=== PATIENT | female | born 1940 | race Caucasian/White ===

== ENCOUNTER 2017-09-26 17:28 | Inpatient (IN) | payer MEDICARE ==
[~2017-09-26] VITALS: Ht 160 cm; Wt 79.0 kg
[~2017-09-26 17:28] MED LIST: BAYE325T3 PO; DIPH2%T PO
[2017-09-26 17:33] VITALS: BP 210/96; PULSE 66; RESP 20; TEMP 97.8; O2SAT 95
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
[2017-09-26] MEDS ORDERED: SODIUM CHLORIDE 0.9% FLUSH 10 ML FLUSH IVF PRN ×2 (17:45→18:15)
[2017-09-26] MEDS ORDERED: ACETAMINOPHEN 500 MG CPLT PO ONE (17:45)
[2017-09-26] MEDS ORDERED: ONDANSETRON HCL 4 MG/2 ML VIAL IVP ONE (18:15)
[2017-09-26] MEDS ORDERED: MORPHINE SULFATE 4 MG/ML INJ IV PUSH ONE ×3 (18:15→19:30)
[2017-09-26 18:19] VITALS: O2SAT 95
[2017-09-26] MEDS ORDERED: MORPHINE SULFATE 2 MG/ML INJ IV PUSH ONE (18:30)
--- NOTE | 2017-09-26 18:39 | RADRPT ---
EXAM DATE/TIME: 09/26/2017 17:50 [facility] COMPARISON: No previous studies available for comparison. INDICATIONS : Left hip pain after fall. MEDICAL HISTORY : None. SURGICAL HISTORY : Hysterectomy. ENCOUNTER: Initial ACUITY: 1 day PAIN SCORE: 10/10 LOCATION: Left hip. FINDINGS: AP view of the pelvis with multiple views of the left hip demonstrate a subcapital left femoral neck fracture with minimal displacement. The remaining pelvic bones and soft tissues demonstrate no acute finding. CONCLUSION: There is an minimally displaced subcapital left femoral neck fracture. Gerard Garcia MD on September 26, 2017 at 18:36 Board Certified Radiologist. This report was verified electronically.
--- NOTE | 2017-09-26 18:40 | RADRPT ---
EXAM DATE/TIME: 09/26/2017 18:15 [facility] COMPARISON: No previous studies available for comparison. INDICATIONS : Trauma. Patient fell today. MEDICAL HISTORY : None. SURGICAL HISTORY : Hysterectomy. ENCOUNTER: Initial ACUITY: 1 day PAIN SCORE: 0/10 LOCATION: Bilateral chest FINDINGS: Portable AP view of the chest demonstrates a normal-sized cardiac silhouette. No effusion, consolidat ion, or pneumothorax is visualized. The bones and soft tissues demonstrate no acute abnormality. Clip s overlie the left upper quadrant. There is likely a small hiatal hernia. CONCLUSION: 1. No acute cardiopulmonary abnormalities identified. 2. Suspected small hiatal hernia. Gerard Garcia MD on September 26, 2017 at 18:37 Board Certified Radiologist. This report was verified electronically.
[2017-09-26] MEDS ORDERED: CHOL1TAB42 PO (18:42)
[2017-09-26] MEDS ORDERED: OMEP20TA93 PO (18:42)
[2017-09-26] MEDS ORDERED: LEVO125T4 PO (18:42)
[2017-09-26] MEDS ORDERED: ZANT150T2 PO (18:42)
[2017-09-26] MEDS ORDERED: METO100T PO (18:42)
[2017-09-26] MEDS ORDERED: VITA10002 PO (18:42)
[2017-09-26] MEDS ORDERED: ALTA10CA12 PO (18:42)
[2017-09-26] MEDS ORDERED: ASPI81TA16 PO (18:42)
[2017-09-26] MEDS ORDERED: CALC12502 PO (18:42)
[2017-09-26 18:43] LABS: AUTOMATED NEUTROPHIL # 2.9 TH/MM3 (1.8-7.7); BASOPHIL % 0.7 % (0.0-2.0); EOSINOPHIL # 0.2 TH/MM3 (0-0.4); EOSINOPHIL % 2.8 % (0.0-4.0); HEMATOCRIT 41.6 % (35.0-46.0); HEMO FLAGS DIFF FINAL; LYMPH % 40.4 % (9.0-44.0); LYMPHOCYTE # 2.6 TH/MM3 (1.0-4.8); MEAN CELL VOLUME 88.9 FL (80.0-100.0); MEAN CORPUSCULAR HEMOGLOBIN 30.9 PG (27.0-34.0); MEAN CORPUSCULAR HGB CONC 34.8 % (32.0-36.0); MONO % 10.7 % (0.0-8.0); NEUT % 45.4 % (16.0-70.0); PLATELET COUNT 184 TH/MM3 (150-450); RED BLOOD COUNT 4.68 MIL/MM3 (4.00-5.30); RED CELL DISTRIBUTION WIDTH 12.6 % (11.6-17.2); WHITE BLOOD COUNT 6.3 TH/MM3 (4.0-11.0)
[2017-09-26 18:46] VITALS: BP 186/79; PULSE 73; RESP 20; O2SAT 94
[2017-09-26 19:00] LABS: APTT (PATIENT) 25.9 SEC (24.3-30.1); INTERNATIONAL NORMALIZED RATIO 0.9 RATIO; PROTHROMBIN TIME - PATIENT 10.2 SEC (9.8-11.6)
[2017-09-26 19:01] LABS: ALT (GPT) 76 U/L (10-53)
[2017-09-26 19:03] LABS: ALKALINE PHOSPHATASE 115 U/L (45-117); TOTAL BILIRUBIN ADULT 0.5 MG/DL (0.2-1.0)
[2017-09-26 19:06] LABS: BLOOD, URINE NEG (NEG); GLUCOSE,URINE NEG (NEG); KETONE, URINE NEG (NEG); NITRITE,URINE NEG (NEG); URINE COLOR LIGHT-YELLOW (YELLW/STRAW)
[2017-09-26 19:09] LABS: COMMENT (UR) CATH-CULT NOT IND; CULTURE IF INDICATED CATH CULTURE NOT IND
[2017-09-26 19:10] LABS: ANION GAP 11 MEQ/L (5-15); AST (GOT) 63 U/L (15-37); BICARBONATE 22.3 MEQ/L (21.0-32.0); BLOOD UREA NITROGEN 10 MG/DL (7-18); CHLORIDE 107 MEQ/L (98-107); GLOMERULAR FILTRATION RATE 85 ML/MIN (>89); POTASSIUM 3.6 MEQ/L (3.5-5.1); SODIUM (NA) 140 MEQ/L (136-145)
[2017-09-26 19:17] VITALS: BP 191/82; PULSE 65; RESP 16; O2SAT 90
[2017-09-26] MEDS ORDERED: ACETAMINOPHEN 325 MG TAB PO PRN (19:30)
[2017-09-26] MEDS ORDERED: MORPHINE SULFATE 4 MG/ML INJ IV PUSH PRN ×2 (19:30)
[2017-09-26] MEDS ORDERED: SODIUM CHLORIDE 0.9% FLUSH 10 ML FLUSH IV FLUSH PRN (19:30)
[2017-09-26] MEDS ORDERED: BISACODYL 10 MG SUPP RECTAL PRN (19:30)
[2017-09-26] MEDS ORDERED: SENNOSIDES 8.6 MG TAB PO PRN (19:30)
[2017-09-26] MEDS ORDERED: MAGNESIUM HYDROXIDE SUSP 30 ML CUP PO PRN (19:30)
--- NOTE | 2017-09-26 19:31 | HHI.HP ---
HPI Service [facility] Primary Care Physician Non-Staff Admission Diagnosis left subcapital femoral neck fracture Diagnoses: (1) Fall Diagnosis: Principal (2) Hip fracture, left Diagnosis: Principal (3) HTN (hypertension) Diagnosis: Principal (4) Dehydration Diagnosis: Principal (5) Elevated LFTs Diagnosis: Principal Travel History International Travel<30 Days: No Contact w/Intl Traveler <30 Da: No Traveled to Known Affected Are: No History of Present Illness This is a 76-year-old female with a PMH of HTN who is brought to the ER by EMS after a fall with complaints of left hip pain. Patient states she's visiting from [place], was walking on the beach when she suddenly tripped over her sandals and fell onto left side, immediate complaints of left hip pain. No head trauma or LOC. On arrival, BP 234/101, HR 73, O2 sat 94% on RA, Afebrile. S/p Morphine in ER, repeat BP 162/73, HR 65. CBC unremarkable. Chemistry unremarkable was sent for GFR 85. AST/ALT mildly elevated. INR 0.9. UA negative. CXR with no acute findings. Hip X-ray minimally displaced subcapital left femoral neck fracture. Ankle/Foot/Knee/Tib-fib X-ray negative for acute fracture. Dr. Reyez consulted by ER physician, plan is for surgical intervention in am. Review of Systems Except as stated in HPI: all other systems reviewed are Neg ROS: 14 point review of systems otherwise negative. Past Family Social History Past Medical History PMH: HTN Past Surgical History PAST SURGICAL HISTORY: Hysterectomy Allergies: Coded Allergies: pneumococcal vaccine (Verified Allergy, Severe, 09/26/17) pt states cellulitis codeine (Unverified Allergy, Unknown, 09/26/17) Family History PAST FAMILY HISTORY: Reviewed. No h/o DM or CAD Social History PAST SOCIAL HISTORY: Negative for alcohol, tobacco or drugs. Physical Exam Vital Signs Vital Signs Date Time Temp Pulse Resp B/P (MAP) Pulse Ox O2 Delivery O2 Flow Rate FiO2 09/26/17 19:17 65 16 191/82 (118) 90 Room Air 09/26/17 18:46 73 20 186/79 (114) 94 Room Air 09/26/17 18:30 66 95 Room Air 09/26/17 18:19 95 Room Air 09/26/17 17:33 97.8 66 20 210/96 (134) 95 Physical Exam PE: GENERAL: Pleasant elderly white female in no acute distress. HEENT: PERRLA, EOMI. No scleral icterus or conjunctival pallor. No lid lag or facial droop. CARDIOVASCULAR: Regular rate and rhythm. No obvious murmurs to auscultation. No chest tenderness to palpation. RESPIRATORY: No obvious rhonchi or wheezing. Clear to auscultation. Breath sounds equal bilaterally. GASTROINTESTINAL: Abdomen soft, non-tender, nondistended. BS normal. MUSCULOSKELETAL: Extremities without clubbing, cyanosis, or edema. No obvious deformities. Decreased ROM of LLE due to injury. NEUROLOGICAL: Awake, alert and oriented x4. No focal neurologic deficits. Moving both upper and lower extremities spontaneously. Laboratory Laboratory Tests Test 09/26/17 18:15 09/26/17 18:45 White Blood Count 6.3 Red Blood Count 4.68 Hemoglobin 14.5 Hematocrit 41.6 Mean Corpuscular Volume 88.9 Mean Corpuscular Hemoglobin 30.9 Mean Corpuscular Hemoglobin Concent 34.8 Red Cell Distribution Width 12.6 Platelet Count 184 Mean Platelet Volume 7.7 Neutrophils (%) (Auto) 45.4 Lymphocytes (%) (Auto) 40.4 Monocytes (%) (Auto) 10.7 Eosinophils (%) (Auto) 2.8 Basophils (%) (Auto) 0.7 Neutrophils # (Auto) 2.9 Lymphocytes # (Auto) 2.6 Monocytes # (Auto) 0.7 Eosinophils # (Auto) 0.2 Basophils # (Auto) 0.0 CBC Comment DIFF FINAL Differential Comment Prothrombin Time 10.2 Prothromb Time International Ratio 0.9 Activated Partial Thromboplast Time 25.9 Blood Urea Nitrogen 10 Creatinine 0.67 Random Glucose 122 Total Protein 7.5 Albumin 3.5 Calcium Level 8.7 Alkaline Phosphatase 115 Aspartate Amino Transf (AST/SGOT) 63 Alanine Aminotransferase (ALT/SGPT) 76 Total Bilirubin 0.5 Sodium Level 140 Potassium Level 3.6 Chloride Level 107 Carbon Dioxide Level 22.3 Anion Gap 11 Estimat Glomerular Filtration Rate 85 Urine Color LIGHT-YELLOW Urine Turbidity CLEAR Urine pH 6.0 Urine Specific [place] 1.007 Urine Protein NEG Urine Glucose (UA) NEG Urine Ketones NEG Urine Occult Blood NEG Urine Nitrite NEG Urine Bilirubin NEG Urine Urobilinogen LESS THAN 2.0 Urine Leukocyte Esterase NEG Urine RBC LESS THAN 1 Urine WBC LESS THAN 1 Microscopic Urinalysis Comment CATH-CULT NOT IND Result Diagram: 09/26/17181409/26/171814 Caprini VTE Risk Assessment Caprini VTE Risk Assessment: Mod/High Risk (score >= 2) Caprini Risk Assessment Model Point Value = 1 Point Value = 2 Point Value = 3 Point Value = 5 Age 41-60 Minor surgery BMI > 25 kg/m2 Swollen legs Varicose veins or History of unexplained or recurrent spontaneous Oral contraceptives or hormone replacement Sepsis (< 1 month) Serious lung disease, including pneumonia (< 1 month) Abnormal pulmonary function Acute myocardial infarction Congestive heart failure (< 1 month) History of inflammatory bowel disease Medical patient at bed rest Age 61-74 Arthroscopic surgery Major open surgery (> 45 min) Laparoscopic surgery (> 45 min) Malignancy Confined to bed (> 72 hours) Immobilizing plaster cast Central venous access Age >= 75 History of VTE Family history of VTE Factor V Leiden Prothrombin [id number] Lupus anticoagulant Anticardiolipin antibodies Elevated serum homocysteine Heparin-induced thrombocytopenia Other congenital or acquired thrombophilia Stroke (< 1 month) Elective arthroplasty Hip, pelvis, or leg fracture Acute spinal cord injury (< 1 month) Prophylaxis Regimen Total Risk Factor Score Risk Level Prophylaxis Regimen 0-1 Low Early ambulation 2 Moderate Order ONE of the following: *Sequential Compression Device (SCD) *Heparin 5000 units SQ BID 3-4 Higher Order ONE of the following medications: *Heparin 5000 units SQ TID *Enoxaparin/Lovenox 40 mg SQ daily (WT < 150 kg, CrCl > 30 mL/min) *Enoxaparin/Lovenox 30 mg SQ daily (WT < 150 kg, CrCl > 10-29 mL/min) *Enoxaparin/Lovenox 30 mg SQ BID (WT < 150 kg, CrCl > 30 mL/min) AND/OR *Sequential Compression Device (SCD) 5 or more Highest Order ONE of the following medications: *Heparin 5000 units SQ TID (Preferred with Epidurals) *Enoxaparin/Lovenox 40 mg SQ daily (WT < 150 kg, CrCl > 30 mL/min) *Enoxaparin/Lovenox 30 mg SQ daily (WT < 150 kg, CrCl > 10-29 mL/min) *Enoxaparin/Lovenox 30 mg SQ BID (WT < 150 kg, CrCl > 30 mL/min) AND *Sequential Compression Device (SCD) Assessment and Plan Problem List: (1) Fall ICD Code: W19.XXXA - Unspecified fall, initial encounter (2) Hip fracture, left ICD Code: S72.002A - Fracture of unspecified part of neck of left femur, initial encounter for closed fracture (3) Dehydration ICD Code: E86.0 - Dehydration (4) HTN (hypertension) ICD Code: I10 - Essential (primary) hypertension (5) Elevated LFTs ICD Code: R79.89 - Other specified abnormal findings of blood chemistry Assessment and Plan A/P: 1. Fall: s/p mechanical trip and fall while at beach, no head trauma/LOC reported. Foot/Ankle/Knee/Tib-fib X-ray all negative for acute fractures, images reviewed by me. 2. Left Hip Fx: Hip X-ray w/ minimally displaced subcapital left femoral neck fracture, images reviewed by me. Dr. Reyez consulted by ER physician, plan is for surgical intervention in am. NPO, IVF, analgesics/antiemetics. Pre-op labs essentially unremarkable. Hold ASA. 3. Dehydration: GFR 85. U/a negative, IVF for hydration, repeat labs in am. 4. HTN: BP 234/101, HR 79 on arrival, likely compounded by significant pain, s /p Morphine, repeat BP 162/73, HR 65. Will monitor. Restart home Metoprolol, Ramipril. 5. Elevated LFTs: Mild. No previous labs for comparison. Recheck labs in am for trend. 6. DVT Prophylaxis: Anticoagulation post op per Ortho 7. Social work for d/c planning as needed. 8. Case discussed w/ ER physician at length. Physician Certification 2 Midnight Certification Type: Admission for Inpatient Services Order for Inpatient Services The services are ordered in accordance with Medicare regulations or non- Medicare payer requirements, as applicable. In the case of services not specified as inpatient-only, they are appropriately provided as inpatient services in accordance with the 2-midnight benchmark. Estimated LOS (days): 2 days is the estimated time the patient will need to remain in the hospital, assuming treatment plan goals are met and no additional complications. Post-Hospital Plan: Not yet determined Mary Moore MD Sep 26, 2017 19:31
[2017-09-26 20:22] VITALS: BP 162/73
[2017-09-26] MEDS: SODIUM CHLOR 0.9% 1000 ML INJ 1,000 ML IV SCH (20:52)
[2017-09-26] MEDS: ONDANSETRON HCL 4 MG/2 ML VIAL IVP PRN (20:52)
[2017-09-26] MEDS: SODIUM CHLORIDE 0.9% FLUSH 10 ML FLUSH IV FLUSH SCH (21:00)
[2017-09-26] MEDS ORDERED: RESP: ALBUTEROL 2.5 MG/IPRATROPIUM 0.5 MG NEB (PRN) NEB (21:00)
[2017-09-26] MEDS: DOCUSATE SODIUM 50 MG/SENNA 8.6 MG TAB PO SCH (21:00)
[2017-09-26 21:30] VITALS: BP 175/89; PULSE 79; RESP 17; TEMP 97.5; O2SAT 96
[2017-09-27] VITALS (7 sets, daily range): BP systolic 106–168; BP diastolic 62–98; PULSE 58–92; RESP 17–20; TEMP 96.1–98.1; O2SAT 93–95
[2017-09-27] MEDS ORDERED: LACTATED RINGER'S 1000 ML IV PRN (01:30)
[2017-09-27] MEDS ORDERED: POVIDONE IODINE 5% (ANTISEPSIS KIT) 4 APPLICATIONS EACH NARE PRN (01:30)
[2017-09-27] MEDS ORDERED: SODIUM CHLORID 0.9% 500 ML IV PRN (01:30)
[2017-09-27] MEDS ORDERED: INSULIN HUMAN REGULAR 1,000 UNITS/10 ML VIAL SQ PRN (01:30)
[2017-09-27] MEDS ORDERED: METOPROLOL TARTRATE 25 MG TAB PO PRN (01:30)
[2017-09-27] MEDS ORDERED: CHLORHEXIDINE GLUCONATE 2 % 1 PACK (2 CLOTHS) TOPICAL PRN (01:30)
[2017-09-27] MEDS: ONDANSETRON HCL 4 MG/2 ML VIAL IVP PRN ×2 (03:43→20:03)
[2017-09-27] MEDS: SODIUM CHLOR 0.9% 1000 ML INJ 1,000 ML IV SCH (06:20)
[2017-09-27] MEDS ORDERED: METOPROLOL TARTRATE 100 MG TAB PO SCH (06:30)
[2017-09-27] MEDS ORDERED: GENTAMICIN SULFATE 80 MG/2 ML VIAL ONE (07:05)
[2017-09-27 07:06] LABS: AUTOMATED NEUTROPHIL # 4.9 TH/MM3 (1.8-7.7); BASOPHIL % 0.4 % (0.0-2.0); EOSINOPHIL % 0.5 % (0.0-4.0); HEMATOCRIT 38.6 % (35.0-46.0); HEMO FLAGS DIFF FINAL; LYMPH % 20.3 % (9.0-44.0); LYMPHOCYTE # 1.4 TH/MM3 (1.0-4.8); MEAN CELL VOLUME 89.5 FL (80.0-100.0); MEAN CORPUSCULAR HGB CONC 34.7 % (32.0-36.0); MONO % 8.8 % (0.0-8.0); PLATELET COUNT 167 TH/MM3 (150-450); RED BLOOD COUNT 4.32 MIL/MM3 (4.00-5.30); RED CELL DISTRIBUTION WIDTH 12.8 % (11.6-17.2)
[2017-09-27] MEDS ORDERED: ceFAZolin 2 GM PREMIX 50 ML ONE (07:25)
[2017-09-27] MEDS ORDERED: VANCOMYCIN HCL 1000 MG VIAL ONE (07:25)
[2017-09-27 07:26] LABS: ANION GAP 6 MEQ/L (5-15); AST (GOT) 47 U/L (15-37); BICARBONATE 27.8 MEQ/L (21.0-32.0); BLOOD UREA NITROGEN 9 MG/DL (7-18); CHLORIDE 107 MEQ/L (98-107); GLOMERULAR FILTRATION RATE 92 ML/MIN (>89); POTASSIUM 3.8 MEQ/L (3.5-5.1); SODIUM (NA) 141 MEQ/L (136-145)
[2017-09-27 07:30] LABS: ALKALINE PHOSPHATASE 102 U/L (45-117); ALT (GPT) 65 U/L (10-53); TOTAL BILIRUBIN ADULT 0.7 MG/DL (0.2-1.0)
--- NOTE | 2017-09-27 07:46 | PD.ORT.PN ---
Objective Vitals Vital Signs Date Time Temp Pulse Resp B/P (MAP) Pulse Ox O2 Delivery O2 Flow Rate FiO2 09/27/17 06:36 98.1 68 18 162/80 (107) 95 09/27/17 04:19 96.8 74 18 168/98 (121) 95 09/27/17 00:45 97.8 71 17 162/79 (106) 94 09/26/17 21:30 97.5 79 17 175/89 (117) 96 09/26/17 20:52 09/26/17 20:22 162/73 (102) 09/26/17 19:17 65 16 191/82 (118) 90 Room Air 09/26/17 18:46 73 20 186/79 (114) 94 Room Air 09/26/17 18:30 66 95 Room Air 09/26/17 18:19 95 Room Air 09/26/17 17:33 97.8 66 20 210/96 (134) 95 I/O 09/26/17 09/26/17 09/26/17 09/27/17 09/27/17 09/27/17 07:00 15:00 23:00 07:00 15:00 23:00 Intake Total 240 ml 0 ml Output Total 1150 ml 350 ml Balance -910 ml -350 ml Intake Oral 240 ml 0 ml Output Urine Total 1150 ml 350 ml # Bowel Movements 0 0 Result Diagram: 09/27/17 0559 09/27/17 0559 Other Results Laboratory Tests Test 09/26/17 18:15 Prothromb Time International Ratio 0.9 RATIO Prothrombin Time 10.2 SEC (9.8-11.6) Imaging Last 24 hours Impressions Chest X-Ray 09/26/17 1805 Signed Impressions: Service Date/Time: Tuesday, September 26, 2017 18:15 - CONCLUSION: 1. No acute cardiopulmonary abnormalities identified. 2. Suspected small hiatal hernia. Gerard Garcia MD Hip and Pelvis X-Ray 09/26/177 Signed Impressions: Service Date/Time: Tuesday, September 26, 2017 17:50 - CONCLUSION: There is an minimally displaced subcapital left femoral neck fracture. Gerard Garcia MD Assessment & Plan Problem List: (1) Fracture of femoral neck, left, closed ICD Codes: S72.002A - Fracture of unspecified part of neck of left femur, initial encounter for closed fracture Status: Acute Qualifiers: Qualified Codes: S72.002A - Fracture of unspecified part of neck of left femur, initial encounter for closed fracture Assessment and Plan Options were discussed Recommend Hemiarthroplasty for fracture Informed consent was obtained Justus Mercer MD Sep 27, 2017 07:46
[2017-09-27] MEDS: SODIUM CHLORIDE 0.9% FLUSH 10 ML FLUSH IV FLUSH SCH ×2 (07:50→20:31)
[2017-09-27] MEDS: LEVOTHYROXINE SODIUM 125 MCG TAB PO SCH (07:50)
[2017-09-27] MEDS: METOPROLOL TARTRATE 100 MG TAB PO SCH (07:50)
[2017-09-27] MEDS: PANTOPRAZOLE SOD 20 MG DELAYED RELEASE TAB PO SCH (07:50)
[2017-09-27] MEDS: RAMIPRIL 5 MG CAP PO SCH (07:50)
[2017-09-27] MEDS: DOCUSATE SODIUM 50 MG/SENNA 8.6 MG TAB PO SCH ×2 (07:50→20:29)
[2017-09-27] MEDS ORDERED: ACETAMINOPHEN 1000 MG/100 ML 100 ML IV ONE (08:28)
--- NOTE | 2017-09-27 08:43 | HHI.PR ---
Subjective Remarks In bed, seen after surgery. Says she usually gets sick after anesthesia however it went very well. She denies any n/v/d/c. No fever or chills. Pain is controlled by meds. Objective Vitals Vital Signs Date Time Temp Pulse Resp B/P (MAP) Pulse Ox O2 Delivery O2 Flow Rate FiO2 09/27/17 06:36 98.1 68 18 162/80 (107) 95 09/27/17 04:19 96.8 74 18 168/98 (121) 95 09/27/17 00:45 97.8 71 17 162/79 (106) 94 09/26/17 21:30 97.5 79 17 175/89 (117) 96 09/26/17 20:52 09/26/17 20:22 162/73 (102) 09/26/17 19:17 65 16 191/82 (118) 90 Room Air 09/26/17 18:46 73 20 186/79 (114) 94 Room Air 09/26/17 18:30 66 95 Room Air 09/26/17 18:19 95 Room Air 09/26/17 17:33 97.8 66 20 210/96 (134) 95 I/O 09/26/17 09/26/17 09/26/17 09/27/17 09/27/17 09/27/17 07:00 15:00 23:00 07:00 15:00 23:00 Intake Total 240 ml 955 ml Output Total 1150 ml 350 ml Balance -910 ml 605 ml Intake Oral 240 ml 0 ml IV Total 955 ml Output Urine Total 1150 ml 350 ml # Bowel Movements 0 0 Result Diagram: 09/27/17 0559 09/27/17 0559 Imaging Last Impressions Chest X-Ray 09/26/17 180 Signed Impressions: Service Date/Time: Tuesday, September 26, 2017 18:15 - CONCLUSION: 1. No acute cardiopulmonary abnormalities identified. 2. Suspected small hiatal hernia. Gerard Garcia MD Hip and Pelvis X-Ray 09/26/17 4153 Signed Impressions: Service Date/Time: Tuesday, September 26, 2017 17:50 - CONCLUSION: There is an minimally displaced subcapital left femoral neck fracture. Gerard Garcia MD Objective Remarks GENERAL: Pleasant elderly white female in no acute distress. CARDIOVASCULAR: Regular rate and rhythm. No obvious murmurs to auscultation. No chest tenderness to palpation. RESPIRATORY: No obvious rhonchi or wheezing. Clear to auscultation. Breath sounds equal bilaterally. GASTROINTESTINAL: Abdomen soft, non-tender, nondistended. BS normal. MUSCULOSKELETAL: Extremities without clubbing, cyanosis, or edema. No obvious deformities. Decreased ROM of LLE due to injury. NEUROLOGICAL: Awake, alert and oriented x4. No focal neurologic deficits. Moving both upper and lower extremities spontaneously. Procedures S/p Left Hip Hemiarthroplasty for Fracture using J&J Depuy Size 13 Corail stem and a 44 mm bipolar head - Posterior Approach by Dr Ruslan quiñones on A/P Problem List: (1) Fall ICD Code: W19.XXXA - Unspecified fall, initial encounter (2) Hip fracture, left ICD Code: S72.002A - Fracture of unspecified part of neck of left femur, initial encounter for closed fracture (3) Dehydration ICD Code: E86.0 - Dehydration (4) HTN (hypertension) ICD Code: I10 - Essential (primary) hypertension (5) Elevated LFTs ICD Code: R79.89 - Other specified abnormal findings of blood chemistry Assessment and Plan Fall: s/p mechanical trip and fall while at beach, no head trauma/LOC reported. Foot/Ankle/Knee/Tib-fib X-ray all negative for acute fractures, images reviewed by me. Left Hip Fx: Hip X-ray w/ minimally displaced subcapital left femoral neck fracture, images reviewed by me. Dr. Reyez consulted by ER physician IVF, analgesics/antiemetics. S/p Left Hip Hemiarthroplasty for Fracture using J&J Depuy Size 13 Corail stem and a 44 mm bipolar head - Posterior Approach by Dr Ruslan quiñones on Dehydration: GFR 85. U/a negative, IVF for hydration, repeat labs in am. HTN: BP 234/101, HR 79 on arrival, likely compounded by significant pain, s/p Morphine, repeat BP 162/73, HR 65. Will monitor. Restart home Metoprolol, Ramipril. Elevated LFTs: Mild. No previous labs for comparison. Recheck labs in am for trend. DVT Prophylaxis: Anticoagulation post op per Ortho. Case management for d/c planning as needed. Discussed with the patient, nurse. Jelly Siegel MD Sep 27, 2017 08:42
[2017-09-27] MEDS ORDERED: BUPIVACAINE LIPOSOME PF 1.3% 20 ML VIAL ONE (08:55)
--- NOTE | 2017-09-27 09:23 | PD.OP ---
Operative Report Preoperative Diagnosis: (1) Fracture of femoral neck, left, closed Postoperative Diagnosis: (1) Fracture of femoral neck, left, closed Procedure: Left Hip Hemiarthroplasty for Fracture using J&J Depuy Size 13 Corail stem and a 44 mm bipolar head - Posterior Approach Surgeon: Justus Mercer MD Deputy Clerk Of Superior Court(s): Kermit ADDISON Operation and Findings: see dictation Justus Mercer MD Sep 27, 2017 09:23
[2017-09-27] MEDS ORDERED: ACETAMINOPHEN 325 MG TAB PO PRN (09:30)
[2017-09-27] MEDS ORDERED: Post-op Orders (for Pharmacy) MISC XX ONE (09:30)
[2017-09-27] MEDS ORDERED: diphenhydrAMINE HCL 25 MG CAP PO PRN (09:30)
[2017-09-27] MEDS ORDERED: NALOXONE HCL 0.4 MG/ML AMP IV PUSH PRN (09:30)
[2017-09-27] MEDS ORDERED: MORPHINE SULFATE 30 MG/30 ML PCA IV SCH (09:30)
[2017-09-27] MEDS ORDERED: MISCELLANEOUS PHARMACY INFORMATION XX ONE (09:30)
[2017-09-27] MEDS ORDERED: oxyCODONE/ACETAMINOPHEN 5 MG/325 MG TAB PO PRN (09:30)
[2017-09-27] MEDS ORDERED: MISCELLANEOUS NURSING INFORMATION XX PRN (09:30)
[2017-09-27] MEDS: LACTATED RINGER'S 1000 ML INJ 1,000 ML IV SCH ×2 (10:00→20:38)
--- NOTE | 2017-09-27 10:23 | RADRPT ---
EXAM DATE/TIME: 09/27/2017 09:38 [facility] COMPARISON: No previous studies available for comparison. INDICATIONS : Post left hip hardware placement MEDICAL HISTORY : None. SURGICAL HISTORY : Hysterectomy. ENCOUNTER: Subsequent ACUITY: 2 days PAIN SCORE: 0/10 LOCATION: Left Hip FINDINGS: Examination of the hip demonstrates postsurgical changes following left hip replacement. Acetabular a nd femoral components are well-seated in satisfactory aligned. CONCLUSION: Satisfactory postoperative appearance of the left hip status post replacement. Yannick Lubin MD on September 27, 2017 at 10:21 Board Certified Radiologist. This report was verified electronically.
[2017-09-27] MEDS ORDERED: DO NOT ADM ANY ANTICOAGULANT DRUGS PRN (10:30)
--- NOTE | 2017-09-27 10:40 | MB ---
cc: EVANS CARRINGTON M.D. DATE OF CONSULTATION: 09/27/2017 REASON FOR CONSULTATION: Left femoral neck fracture. HISTORY OF PRESENT ILLNESS Catalina Gordillo is a 76-year-old female visiting [place] from [facility] who sustained injury to her left hip when she tripped while on the beach. She was unable to bear weight. She was brought to [facility] where x-rays revealed a comminuted left subcapital femoral neck fracture. She was admitted to the medical service with consultation placed to the undersigned. PAST MEDICAL HISTORY: Significant for: 1. Hypertension. PAST SURGICAL HISTORY: Positive for hysterectomy. REGULAR MEDICATIONS: Aspirin daily. Difenylhydramine. Metromenorrhagia. SOCIAL HISTORY She lives in [place]. She denies alcohol, tobacco or drug use. PHYSICAL EXAMINATION The patient is alert, oriented, appropriate. Extremities: She has tenderness to palpation about the left hip. Any hip motion causes discomfort. Knee has no effusion. Calves are soft. Homans' sign is negative. Distal pulses are 2+. Neuro: Distal motor sensory neurologic examinations intact. X-RAYS: X-rays were reviewed which show a left comminuted femoral neck fracture. ASSESSMENT Left hip comminuted femoral neck fracture. MEDICAL DECISION MAKING Her case was discussed, the options of treatment were discussed. The recommendation is surgical repair in the form of left hip hemiarthroplasty for fracture. Surgical technique described. Risks, benefits discussed including discussion, risk of infection, nerve damage, blood vessel damage, bleeding, blood loss, need for blood transfusion, anesthetic complications, medical complications, unforeseen possible complications. All of her questions were answered. Detailed informed consent was obtained. MD RENE Lorenzana/MARGIE /9:37 AM /10:37 AM
[2017-09-27] MEDS ORDERED: PROPOFOL 200 MG/20 ML AMP IV ONE (12:00)
[2017-09-27] MEDS ORDERED: PHENYLEPH/NS 1000 MCG/10 ML SYR IV ONE (12:00)
[2017-09-27] MEDS ORDERED: ROCURONIUM INJ 50 MG/5 ML SYRINGE IV PUSH ONE (12:00)
[2017-09-27] MEDS ORDERED: NEOSTIGMINE 3 MG/3 ML SYR IV ONE (12:00)
[2017-09-27] MEDS ORDERED: DEXAMETHASONE SOD PHOS 4 MG/ML VIAL IV ONE (12:00)
[2017-09-27] MEDS ORDERED: MIDAZOLAM HCL 2 MG/2 ML VIAL IV ONE (12:00)
[2017-09-27] MEDS ORDERED: GLYCOPYRROLATE 1 MG/5 ML SYRINGE IV PUSH ONE (12:00)
[2017-09-27] MEDS ORDERED: ePHEDrine/NS 25 MG/5 ML SYR IV ONE (12:00)
[2017-09-27] MEDS ORDERED: ONDANSETRON HCL 4 MG/2 ML VIAL IV PUSH ONE (12:00)
[2017-09-27] MEDS ORDERED: LIDOCAINE HCL 1% PF 5 ML AMPULE OTHER ONE (12:00)
[2017-09-27] MEDS ORDERED: MORPHINE SULFATE 4 MG/ML INJ IV ONE (12:00)
[2017-09-27] MEDS ORDERED: BUPIVACAINE LIPOSOME PF 1.3% 20 ML VIAL INFIL ONE (12:32)
--- NOTE | 2017-09-27 12:55 | EKG ---
Date Performed: 09/26/2017 Time Performed: 18:53:49 PTAGE: 76 years EKG: Sinus rhythm PROBABLE INFERIOR MYOCARDIAL INFARCTION ABNORMAL ECG NO PREVIOUS TRACING DOCTOR: Brett Velasco Interpretating Date/Time 09/27/2017 12:53:48
--- NOTE | 2017-09-27 13:02 | MP ---
cc: EVANS CARRINGTON M.D. DATE OF SURGERY: 09/27/2017 PREOPERATIVE DIAGNOSIS: Left hip unstable femoral neck fracture with comminution. POSTOPERATIVE DIAGNOSIS Left hip unstable femoral neck fracture with comminution. PROCEDURE Left hip hemiarthroplasty for fracture using Phil [employer] Phil DePuy size 13 cementless Corail stem with a 28 mm 1.5 femoral head and a 44-mm bipolar head with polyethylene liner - posterior approach. ANESTHESIA: General. SURGEON Evans Carrington MD SIGNAL CIRCUIT DESIGNER SURGEON AZAEL Bagley. ESTIMATED BLOOD LOSS: 500 cc DRAINS: None. SPECIMEN: Femoral head discarded. COMPLICATIONS: None known. INDICATIONS: Catalina Gordillo is a 76-year-old female who sustained a fall on the beach while visiting from [place]. She had a comminuted left femoral neck fracture. She was indicated for surgical intervention in the form of hemiarthroplasty. The risks and benefits were thoroughly reviewed and a detailed informed consent was obtained. DESCRIPTION OF PROCEDURE: The patient was brought to the operating room. She was placed under general anesthetic. She was turned to lateral decubitus position, left hip up. The left hip was prepped and draped in usual sterile fashion. IV antibiotics were given. Time-out was completed, posterior lateral incision made, taken through subcutaneous tissue. Hemostasis obtained with the use of electrocautery. Her blood pressure was slightly higher than normal for bipolar and there was some bleeding that was coming through despite hemostasis attempted with the electrocautery. We proceeded with posterior approach, split the fascia and into the gluteus stephan took down the short external rotators and piriformis and capsule and tagged #2 FiberWire for later repair. A comminuted femoral neck was noted and a finishing cut was made and the fragments of bone were removed, and a large femoral head was removed and sized and found to be a size 44. We then inspected the acetabulum and found no arthritis, and attention was drawn to the canal and we proceeded with a box chisel and canal finder, and sequential broaching up to size 13 where we did a trial reduction, where we had excellent range of motion and stability. This was then the final component, a size 13 standard offset Corail stem. This was impacted into placed with 15 to 20 degrees of anteversion. Once again, we trialed our head and the final head was impacted in place. The hip reduced. We irrigated out with copious amounts of irrigation. We closed the hip capsule with #2 FiberWire and then injected longacting Exparel marking. At this point we had very good hemostasis and we achieved meticulous hemostasis. We irrigated out with copious amounts of irrigation. We proceeded to close in layers with absorbable suture and subcuticular was used on the skin. Then the Dermabond Prineo skin closure system was used which is a waterproof closure that should stay in place for approximately three weeks. Additional soft padded dressing was placed overlying this. The patient was then turned to the supine position, then awoken, and returned to the Recovery Room in stable condition. MD RENE Lorenzana/MARGIE /9:41 AM /12:54 PM
[2017-09-27] MEDS: PCA - TOTAL MG MORPHINE DELIVERED PER SHIFT SCH ×2 (14:00→22:00)
[2017-09-27] MEDS: ceFAZolin 2 GM PREMIX 50 ML IV SCH ×2 (17:11→23:48)
[2017-09-28] VITALS (8 sets, daily range): BP systolic 108–200; BP diastolic 57–89; PULSE 77–120; RESP 17–18; TEMP 96.3–101.2; O2SAT 92–96
[2017-09-28] MEDS: LACTATED RINGER'S 1000 ML INJ 1,000 ML IV SCH ×3 (05:23→22:38)
[2017-09-28] MEDS: METOPROLOL TARTRATE 100 MG TAB PO SCH (05:26)
[2017-09-28] MEDS: PCA - TOTAL MG MORPHINE DELIVERED PER SHIFT SCH ×4 (06:00→22:38)
[2017-09-28 06:44] LABS: HEMATOCRIT 32.5 % (35.0-46.0); REVIEW FLAG FINAL
--- NOTE | 2017-09-28 07:49 | PD.ORT.PN ---
Subjective Subjective Remarks patient comfortable Objective Vitals Vital Signs Date Time Temp Pulse Resp B/P (MAP) Pulse Ox O2 Delivery O2 Flow Rate FiO2 09/28/17 07:38 93 Nasal Cannula 2.00 09/28/17 06:15 99.6 97 17 152/81 (104) 96 09/28/17 06:00 19 09/28/17 05:00 101.2 120 18 200/89 (126) 92 09/28/17 00:15 99.1 97 18 150/70 (96) 93 09/27/17 22:00 18 09/27/17 20:25 97.5 92 17 135/71 (92) 93 09/27/17 18:38 95 Nasal Cannula 2.00 09/27/17 15:57 96.1 67 20 106/62 (77) 95 09/27/17 14:00 16 09/27/17 12:00 96.4 58 20 139/74 (95) 95 09/27/17 11:00 54 16 129/61 (83) 96 Nasal Cannula 2 09/27/17 10:33 16 09/27/17 10:30 54 16 128/64 (85) 96 Nasal Cannula 2 09/27/17 10:15 54 16 131/64 (86) 96 Nasal Cannula 2 09/27/17 10:00 54 16 132/62 (85) 96 Nasal Cannula 2 09/27/17 09:45 58 16 132/62 (85) 97 Nasal Cannula 2 09/27/17 09:30 68 16 135/63 (87) 96 Nasal Cannula 2 09/27/17 09:27 97.5 74 16 130/64 (86) 95 Nasal Cannula 2 I/O 09/27/17 09/27/17 09/27/17 09/28/17 09/28/17 09/28/17 07:00 15:00 23:00 07:00 15:00 23:00 Intake Total 955 ml 1050 ml 1534 ml 410 ml Output Total 350 ml 625 ml 650 ml 400 ml Balance 605 ml 425 ml 884 ml 10 ml Intake Oral 0 ml 840 ml 360 ml IV Total 955 ml 50 ml 694 ml 50 ml Other 1000 ml Output Urine Total 350 ml 125 ml 650 ml 400 ml Estimated Blood Loss 500 ml # Bowel Movements 0 0 0 Result Diagram: 09/28/1752809/27/1759 Imaging Last 24 hours Impressions Chest X-Ray 09/26/17 1805 Signed Impressions: Service Date/Time: Tuesday, September 26, 2017 18:15 - CONCLUSION: 1. No acute cardiopulmonary abnormalities identified. 2. Suspected small hiatal hernia. Gerard Garcia MD Hip and Pelvis X-Ray 09/26/17 1737 Signed Impressions: Service Date/Time: Tuesday, September 26, 2017 17:50 - CONCLUSION: There is an minimally displaced subcapital left femoral neck fracture. Gerard Garcia MD Objective Remarks Left hip moderate drainage into outer dressing Primeo type dressing on skin Calves soft negative moshe's sign NVI Assessment & Plan Problem List: (1) Fracture of femoral neck, left, closed ICD Codes: S72.002A - Fracture of unspecified part of neck of left femur, initial encounter for closed fracture Status: Acute Qualifiers: Qualified Codes: S72.002A - Fracture of unspecified part of neck of left femur, initial encounter for closed fracture Assessment and Plan Left Hip Hemiarthroplasty POD #1 Xrays reviewed Weight bearing as tolerated in P.T. Lovenox for DVT prophalaxis Plan to D/C to [facility] [place] on Thursday Ultimately, she will follow up with ortho surgeon in [place] Justus Mercer MD Sep 28, 2017 07:49
[2017-09-28] MEDS: ENOXAPARIN SODIUM 40 MG/0.4 ML SYRINGE SQ SCH (08:00)
[2017-09-28] MEDS: RAMIPRIL 5 MG CAP PO SCH (08:00)
[2017-09-28] MEDS: DOCUSATE SODIUM 50 MG/SENNA 8.6 MG TAB PO SCH ×2 (08:01→20:43)
[2017-09-28] MEDS: PANTOPRAZOLE SOD 20 MG DELAYED RELEASE TAB PO SCH (08:01)
[2017-09-28] MEDS: ceFAZolin 2 GM PREMIX 50 ML IV SCH (08:02)
[2017-09-28] MEDS: LEVOTHYROXINE SODIUM 125 MCG TAB PO SCH (08:02)
[2017-09-28] MEDS: SODIUM CHLORIDE 0.9% FLUSH 10 ML FLUSH IV FLUSH SCH ×2 (08:06→20:43)
--- NOTE | 2017-09-28 09:04 | HHI.PR ---
Subjective Remarks Patient in the chair appears sleepy. Says pain is controlled. Patient had nausea earlier, no vomiting. No fever or chills. Objective Vitals Vital Signs Date Time Temp Pulse Resp B/P (MAP) Pulse Ox O2 Delivery O2 Flow Rate FiO2 09/28/17 08:00 98.8 77 18 140/65 (90) 95 09/28/17 07:38 93 Nasal Cannula 2.00 09/28/17 06:15 99.6 97 17 152/81 (104) 96 09/28/17 06:00 19 09/28/17 05:00 101.2 120 18 200/89 (126) 92 09/28/17 00:15 99.1 97 18 150/70 (96) 93 09/27/17 22:00 18 09/27/17 20:25 97.5 92 17 135/71 (92) 93 09/27/17 18:38 95 Nasal Cannula 2.00 09/27/17 15:57 96.1 67 20 106/62 (77) 95 09/27/17 14:00 16 09/27/17 12:00 96.4 58 20 139/74 (95) 95 09/27/17 11:00 54 16 129/61 (83) 96 Nasal Cannula 2 09/27/17 10:33 16 09/27/17 10:30 54 16 128/64 (85) 96 Nasal Cannula 2 09/27/17 10:15 54 16 131/64 (86) 96 Nasal Cannula 2 09/27/17 10:00 54 16 132/62 (85) 96 Nasal Cannula 2 09/27/17 09:45 58 16 132/62 (85) 97 Nasal Cannula 2 09/27/17 09:30 68 16 135/63 (87) 96 Nasal Cannula 2 09/27/17 09:27 97.5 74 16 130/64 (86) 95 Nasal Cannula 2 I/O 09/27/17 09/27/17 09/27/17 09/28/17 09/28/17 09/28/17 07:00 15:00 23:00 07:00 15:00 23:00 Intake Total 955 ml 1050 ml 1534 ml 412 ml Output Total 350 ml 625 ml 650 ml 400 ml Balance 605 ml 425 ml 884 ml 12 ml Intake Oral 0 ml 840 ml 360 ml IV Total 955 ml 50 ml 694 ml 52 ml Other 1000 ml Output Urine Total 350 ml 125 ml 650 ml 400 ml Estimated Blood Loss 500 ml # Bowel Movements 0 0 0 Result Diagram: 09/28/17 0529 09/27/17 0559 Imaging Last Impressions Hip X-Ray 09/27/17 0000 Signed Impressions: Service Date/Time: Wednesday, September 27, 2017 09:38 - CONCLUSION: Satisfactory postoperative appearance of the left hip status post replacement. Yannick Lubin MD Chest X-Ray 09/26/17 1805 Signed Impressions: Service Date/Time: Tuesday, September 26, 2017 18:15 - CONCLUSION: 1. No acute cardiopulmonary abnormalities identified. 2. Suspected small hiatal hernia. Gerard Garcia MD Hip and Pelvis X-Ray 09/26/17 1737 Signed Impressions: Service Date/Time: Tuesday, September 26, 2017 17:50 - CONCLUSION: There is an minimally displaced subcapital left femoral neck fracture. Gerard Garcia MD Objective Remarks GENERAL: Pleasant elderly white female in no acute distress. CARDIOVASCULAR: Regular rate and rhythm. No obvious murmurs to auscultation. No chest tenderness to palpation. RESPIRATORY: No obvious rhonchi or wheezing. Clear to auscultation. Breath sounds equal bilaterally. GASTROINTESTINAL: Abdomen soft, non-tender, nondistended. BS normal. MUSCULOSKELETAL: Extremities without clubbing, cyanosis, or edema. No obvious deformities. Decreased ROM of LLE due to injury. NEUROLOGICAL: Awake, alert and oriented x4. No focal neurologic deficits. Moving both upper and lower extremities spontaneously. Procedures S/p Left Hip Hemiarthroplasty for Fracture using J&J Depuy Size 13 Corail stem and a 44 mm bipolar head - Posterior Approach by Dr Ruslan quiñones on A/P Problem List: (1) Fall ICD Code: W19.XXXA - Unspecified fall, initial encounter (2) Hip fracture, left ICD Code: S72.002A - Fracture of unspecified part of neck of left femur, initial encounter for closed fracture (3) Dehydration ICD Code: E86.0 - Dehydration (4) HTN (hypertension) ICD Code: I10 - Essential (primary) hypertension (5) Elevated LFTs ICD Code: R79.89 - Other specified abnormal findings of blood chemistry Assessment and Plan Fall: s/p mechanical trip and fall while at beach, no head trauma/LOC reported. Foot/Ankle/Knee/Tib-fib X-ray all negative for acute fractures, images reviewed by me. Left Hip Fx: Hip X-ray w/ minimally displaced subcapital left femoral neck fracture, images reviewed by me. Dr. Reyez consulted by ER physician IVF, analgesics/antiemetics. S/p Left Hip Hemiarthroplasty for Fracture using J&J Depuy Size 13 Corail stem and a 44 mm bipolar head - Posterior Approach by Dr Ruslan quiñones on Dehydration: GFR 85. U/a negative, IVF for hydration, repeat labs in am. HTN: BP 234/101, HR 79 on arrival, likely compounded by significant pain, s/p Morphine, repeat BP 162/73, HR 65. Will monitor. Restart home Metoprolol, Ramipril. Elevated LFTs: Mild. No previous labs for comparison. Recheck labs in am for trend. DVT Prophylaxis: Anticoagulation post op per Ortho. Case management for d/c planning as needed. Discussed with the patient, nurse. Jelly Siegel MD Sep 28, 2017 09:04
--- NOTE | 2017-09-28 09:13 | HHI.DS ---
Discharge Summary Admission Date Sep 26, 2017 at 19:25 Discharge Date: Sep 30, 2017 Admitting Diagnosis left subcapital femoral neck fracture (1) Fall ICD Code: W19.XXXA - Unspecified fall, initial encounter (2) Hip fracture, left ICD Code: S72.002A - Fracture of unspecified part of neck of left femur, initial encounter for closed fracture (3) Dehydration ICD Code: E86.0 - Dehydration (4) HTN (hypertension) ICD Code: I10 - Essential (primary) hypertension (5) Elevated LFTs ICD Code: R79.89 - Other specified abnormal findings of blood chemistry Procedures S/p Left Hip Hemiarthroplasty for Fracture using J&J Depuy Size 13 Corail stem and a 44 mm bipolar head - Posterior Approach by Dr Ruslan quiñones on Brief History - From Admission This is a 76-year-old female with a PMH of HTN who is brought to the ER by EMS after a fall with complaints of left hip pain. Patient states she's visiting from [place], was walking on the beach when she suddenly tripped over her sandals and fell onto left side, immediate complaints of left hip pain. No head trauma or LOC. On arrival, BP 234/101, HR 73, O2 sat 94% on RA, Afebrile. S/p Morphine in ER, repeat BP 162/73, HR 65. CBC unremarkable. Chemistry unremarkable was sent for GFR 85. AST/ALT mildly elevated. INR 0.9. UA negative. CXR with no acute findings. Hip X-ray minimally displaced subcapital left femoral neck fracture. Ankle/Foot/Knee/Tib-fib X-ray negative for acute fracture. Dr. Reyez consulted by ER physician, plan is for surgical intervention in am. CBC/BMP: 09/28/17 0529 09/27/17 0559 Significant Findings Laboratory Tests Test 09/26/17 18:15 09/26/17 18:45 09/27/17 05:59 09/28/17 05:29 Monocytes (%) (Auto) 10.7 % (0.0-8.0) 8.8 % (0.0-8.0) Random Glucose 122 MG/DL (74-106) 115 MG/DL (74-106) Aspartate Amino Transf (AST/SGOT) 63 U/L (15-37) 47 U/L (15-37) Alanine Aminotransferase (ALT/SGPT) 76 U/L (10-53) 65 U/L (10-53) Estimat Glomerular Filtration Rate 85 ML/MIN (>89) Albumin 3.1 GM/DL (3.4-5.0) Calcium Level 8.3 MG/DL (8.5-10.1) Hemoglobin 11.5 GM/DL (11.6-15.3) Hematocrit 32.5 % (35.0-46.0) Imaging Last Impressions Hip X-Ray 09/27/17 0000 Signed Impressions: Service Date/Time: Wednesday, September 27, 2017 09:38 - CONCLUSION: Satisfactory postoperative appearance of the left hip status post replacement. Yannick Lubin MD Chest X-Ray 09/26/17 1805 Signed Impressions: Service Date/Time: Tuesday, September 26, 2017 18:15 - CONCLUSION: 1. No acute cardiopulmonary abnormalities identified. 2. Suspected small hiatal hernia. Gerard Garcia MD Hip and Pelvis X-Ray 09/26/17 1737 Signed Impressions: Service Date/Time: Tuesday, September 26, 2017 17:50 - CONCLUSION: There is an minimally displaced subcapital left femoral neck fracture. Gerard Garcia MD PE at Discharge GENERAL: Pleasant elderly white female in no acute distress. CARDIOVASCULAR: Regular rate and rhythm. No obvious murmurs to auscultation. No chest tenderness to palpation. RESPIRATORY: No obvious rhonchi or wheezing. Clear to auscultation. Breath sounds equal bilaterally. GASTROINTESTINAL: Abdomen soft, non-tender, nondistended. BS normal. MUSCULOSKELETAL: Extremities without clubbing, cyanosis, or edema. No obvious deformities. Decreased ROM of LLE due to injury. NEUROLOGICAL: Awake, alert and oriented x4. No focal neurologic deficits. Moving both upper and lower extremities spontaneously. Pt update on day of discharge Ambulating with a walker , tolerated PT well.No n/v/d/c. pain is controlled by meds. Hospital Course Fall: s/p mechanical trip and fall while at beach, no head trauma/LOC reported. Foot/Ankle/Knee/Tib-fib X-ray all negative for acute fractures, images reviewed by me. Left Hip Fx: Hip X-ray w/ minimally displaced subcapital left femoral neck fracture, images reviewed by me. Dr. Reyez consulted by ER physician IVF, analgesics/antiemetics. S/p Left Hip Hemiarthroplasty for Fracture using J&J Depuy Size 13 Corail stem and a 44 mm bipolar head - Posterior Approach by Dr Ruslan quiñones on Dehydration: GFR 85. U/a negative, IVF for hydration, repeat labs in am. HTN: BP 234/101, HR 79 on arrival, likely compounded by significant pain, s/p Morphine, repeat BP 162/73, HR 65. Will monitor. Restart home Metoprolol, Ramipril. Elevated LFTs: Mild. No previous labs for comparison. Recheck labs in am for trend. DVT Prophylaxis: Anticoagulation post op per Ortho prescription written by ortho for xarelto 10 mg daily and also Percocet for pain meds, prescriptions are in the chart. patient will go for a week or more to [facility] to live with her son before traveling back to [place]. Patient wants dome refills on meds as she might run of her meds. refills provided. Discharge home on 09/30/17. Walker at [place] as well. Case management ff for dc plan as well. Case management for d/c planning as needed. Discussed with the patient, nurse. Pt Condition on Discharge: Stable Discharge Disposition: Discharge Home Discharge Time: > 30 minutes Discharge Instructions DIET: Follow Instructions for: Heart Healthy Diet Activities you can perform: Weight Bearing as Sesar Follow up Referrals: Orthopedics - 3 Weeks @ [facility] with Kermit Mc Follow up should be on a Thursday in the [place] office PCP Follow-up - 2-3 Days New Medications: Walker Rolling/GetGo (Walker Rolling/GetGo) 1 Mis Mis EA .ROUTE DIRECTED, #1 Continued Medications: Aspirin (Aspirin Adult Low Strength) 81 Mg Tabdr 81 MG PO DAILY for Blood Clot Prevention, #30 TAB (This prescription has been renewed) Cholecalciferol (Vitamin D-3) 2,000 Unit Tab 2000 UNITS PO DAILY Cyanocobalamin (Vitamin B-12) 1,000 Mcg Tab 1000 MCG PO DAILY for Nutritional Supplement, #1 BOTTLE 0 Refills Levothyroxine (Levothyroxine) 125 Mcg Tab 125 MCG PO DAILY for Thyroid, #30 TAB 0 Refills (This prescription has been renewed) Metoprolol Tartrate (Metoprolol Tartrate) 100 Mg Tab 100 MG PO DAILY for Blood Pressure Management, #30 TAB 0 Refills (This prescription has been renewed) Omeprazole (Omeprazole) 20 Mg Tab 20 MG PO DAILY, #30 TAB 0 Refills Oxycodone-Acetaminophen (Percocet) 5-325 mg Tab 1 TAB PO Q4H PRN for PAIN, #50 TAB 0 Refills Oyster Shell (Calcium) 500 Mg Calcium (1250 Mg) Tab 500 MG PO DAILY for Nutritional Supplement Ramipril (Altace) 10 Mg Cap 10 MG PO DAILY for Blood Pressure Management, #30 CAP 0 Refills (This prescription has been renewed) Ranitidine (Zantac) 150 Mg Tab 150 MG PO DAILY for Reduce Stomach Acid, #30 TAB 0 Refills Rivaroxaban (Xarelto) 10 Mg Tab 10 MG PO DAILY for Blood Clot Prevention, #30 TAB 0 Refills Jelly Siegel MD Sep 28, 2017 09:13
[2017-09-28 09:44] LABS: BACTERIA, URINE RARE /hpf; BLOOD, URINE TRACE (NEG); COMMENT (UR) CULT NOT INDICATED; CULTURE IF INDICATED CULT NOT INDICATED; GLUCOSE,URINE NEG (NEG); KETONE, URINE NEG (NEG); MUCUS URINE FEW /lpf (OCC); NITRITE,URINE NEG (NEG); PH, URINE 6.5 (5.0-8.5); SQUAMOUS EPITHELIAL CELL URINE <1 /hpf (0-5); URINE COLOR LIGHT-YELLOW (YELLW/STRAW)
[2017-09-28] MEDS ORDERED: GETGO ROLLING W1 MI1 (14:30)
[2017-09-28] MEDS: LACTULOSE SYRUP 20 GM/30 ML CUP PO PRN (17:44)
[2017-09-28] MEDS: oxyCODONE/ACETAMINOPHEN 5 MG/325 MG TAB PO PRN (17:45)
[2017-09-29] VITALS (7 sets, daily range): BP systolic 104–141; BP diastolic 52–69; PULSE 77–102; RESP 16–18; TEMP 97–99.7; O2SAT 93–96
[2017-09-29] MEDS: oxyCODONE/ACETAMINOPHEN 5 MG/325 MG TAB PO PRN ×2 (06:06→15:34)
--- NOTE | 2017-09-29 07:34 | PD.ORT.PN ---
Subjective Subjective Remarks patient comfortable Objective Vitals Vital Signs Date Time Temp Pulse Resp B/P (MAP) Pulse Ox O2 Delivery O2 Flow Rate FiO2 09/29/17 04:30 99.1 102 18 141/69 (93) 93 09/29/17 00:25 99.7 98 18 126/65 (85) 93 09/28/17 20:25 98.9 85 18 108/57 (74) 94 09/28/17 16:00 99.0 78 18 161/72 (101) 92 09/28/17 14:00 16 09/28/17 11:52 96.3 82 18 141/77 (98) 95 09/28/17 08:00 98.8 77 18 140/65 (90) 95 09/28/17 07:38 93 Nasal Cannula 2.00 I/O 09/28/17 09/28/17 09/28/17 09/29/17 09/29/17 09/29/17 07:00 15:00 23:00 07:00 15:00 23:00 Intake Total 412 ml 600 ml 360 ml 240 ml Output Total 400 ml 200 ml Balance 12 ml 600 ml 160 ml 240 ml Intake Oral 360 ml 600 ml 360 ml 240 ml IV Total 52 ml Output Urine Total 400 ml 200 ml # Voids 1 2 0 # Bowel Movements 0 0 0 0 Result Diagram: 09/28/17 0529 09/27/17 0559 Imaging Last 24 hours Impressions Chest X-Ray 09/26/171804 Signed Impressions: Service Date/Time: Tuesday, September 26, 2017 18:15 - CONCLUSION: 1. No acute cardiopulmonary abnormalities identified. 2. Suspected small hiatal hernia. Gerard Garcia MD Hip and Pelvis X-Ray 09/26/17 3255 Signed Impressions: Service Date/Time: Tuesday, September 26, 2017 17:50 - CONCLUSION: There is an minimally displaced subcapital left femoral neck fracture. Gerard Garcia MD Objective Remarks Left hip RN reoprts continued drainage from inferior part of dressing Primeo type dressing on skin Calves soft negative moshe's sign NVI Assessment & Plan Problem List: (1) Fracture of femoral neck, left, closed ICD Codes: S72.002A - Fracture of unspecified part of neck of left femur, initial encounter for closed fracture Status: Acute Qualifiers: Qualified Codes: S72.002A - Fracture of unspecified part of neck of left femur, initial encounter for closed fracture Assessment and Plan Left Hip Hemiarthroplasty POD #2 Xrays reviewed Weight bearing as tolerated in P.T. Lovenox for DVT prophylaxis Ok to D/C to son's home in [place] today or Thursday F/U in 2 to 3 weeks with my nurse partitioner or with ortho in [place] Justus Mercer MD Sep 29, 2017 07:34
[2017-09-29] MEDS: LEVOTHYROXINE SODIUM 125 MCG TAB PO SCH (08:26)
[2017-09-29] MEDS: PANTOPRAZOLE SOD 20 MG DELAYED RELEASE TAB PO SCH (08:26)
[2017-09-29] MEDS: METOPROLOL TARTRATE 100 MG TAB PO SCH (08:26)
[2017-09-29] MEDS: LACTULOSE SYRUP 20 GM/30 ML CUP PO PRN (08:27)
[2017-09-29] MEDS: DOCUSATE SODIUM 50 MG/SENNA 8.6 MG TAB PO SCH ×2 (08:27→19:29)
[2017-09-29] MEDS: RAMIPRIL 5 MG CAP PO SCH (08:27)
[2017-09-29] MEDS: ENOXAPARIN SODIUM 40 MG/0.4 ML SYRINGE SQ SCH (08:28)
[2017-09-29] MEDS: SODIUM CHLORIDE 0.9% FLUSH 10 ML FLUSH IV FLUSH SCH ×2 (08:28→19:29)
--- NOTE | 2017-09-29 10:09 | HHI.FF ---
Face to Face Verification Diagnosis: (1) Dehydration (2) Fall (3) HTN (hypertension) (4) Elevated LFTs (5) Hip fracture, left (6) Fracture of femoral neck, left, closed Physical Therapy Order: Evaluate and Treat Home Health Nursing Order: Medical education Signs/symptoms of disease process Medication education-adverse effect Nursing assessment with vital signs I have seen patient Catalina Gordillo on 09/29/17. My clinical findings support the need for the requested home health care services because: Ltd mobility - disease progression Patient has SOB I certify that my clinical findings support that this patient is homebound because: Post-op weakness Jelly Siegel MD Sep 29, 2017 10:09
[2017-09-29] MEDS: LACTATED RINGER'S 1000 ML INJ 1,000 ML IV SCH ×2 (11:23→19:29)
[2017-09-29] MEDS ORDERED: METO100T PO (12:32)
[2017-09-29] MEDS ORDERED: ALTA10CA12 PO (12:32)
[2017-09-29] MEDS ORDERED: ASPI81TA16 PO (12:32)
[2017-09-29] MEDS ORDERED: LEVO125T4 PO (12:32)
--- NOTE | 2017-09-29 12:37 | HHI.PR ---
Subjective Remarks Seen earlier today. Denies chest pain nor sob. No n/v/d/c. Had Pt and feels tires. No fever or chills. Pain is controlled by meds. Objective Vitals Vital Signs Date Time Temp Pulse Resp B/P (MAP) Pulse Ox O2 Delivery O2 Flow Rate FiO2 09/29/17 12:00 97.5 85 18 104/52 (69) 94 09/29/17 07:32 99.5 100 18 132/62 (85) 93 09/29/17 04:30 99.1 102 18 141/69 (93) 93 09/29/17 00:25 99.7 98 18 126/65 (85) 93 09/28/17 20:25 98.9 85 18 108/57 (74) 94 09/28/17 16:00 99.0 78 18 161/72 (101) 92 09/28/17 14:00 16 I/O 09/28/17 09/28/17 09/28/17 09/29/17 09/29/17 09/29/17 07:00 15:00 23:00 07:00 15:00 23:00 Intake Total 412 ml 600 ml 360 ml 240 ml Output Total 400 ml 200 ml Balance 12 ml 600 ml 160 ml 240 ml Intake Oral 360 ml 600 ml 360 ml 240 ml IV Total 52 ml Output Urine Total 400 ml 200 ml # Voids 1 2 0 # Bowel Movements 0 0 0 0 Result Diagram: 09/28/17 0529 09/27/17 0559 Imaging Last Impressions Hip X-Ray 09/27/17 0000 Signed Impressions: Service Date/Time: Wednesday, September 27, 2017 09:38 - CONCLUSION: Satisfactory postoperative appearance of the left hip status post replacement. Yannick Lubin MD Chest X-Ray 09/26/17 1805 Signed Impressions: Service Date/Time: Tuesday, September 26, 2017 18:15 - CONCLUSION: 1. No acute cardiopulmonary abnormalities identified. 2. Suspected small hiatal hernia. Gerard Garcia MD Hip and Pelvis X-Ray 09/26/17 0813 Signed Impressions: Service Date/Time: Tuesday, September 26, 2017 17:50 - CONCLUSION: There is an minimally displaced subcapital left femoral neck fracture. Gerard Garcia MD Objective Remarks GENERAL: Pleasant elderly white female in no acute distress. CARDIOVASCULAR: Regular rate and rhythm. No obvious murmurs to auscultation. No chest tenderness to palpation. RESPIRATORY: No obvious rhonchi or wheezing. Clear to auscultation. Breath sounds equal bilaterally. GASTROINTESTINAL: Abdomen soft, non-tender, nondistended. BS normal. MUSCULOSKELETAL: Extremities without clubbing, cyanosis, or edema. No obvious deformities. Decreased ROM of LLE due to injury. NEUROLOGICAL: Awake, alert and oriented x4. No focal neurologic deficits. Moving both upper and lower extremities spontaneously. Procedures S/p Left Hip Hemiarthroplasty for Fracture using J[employer]J Depuy Size 13 Corail stem and a 44 mm bipolar head - Posterior Approach by Dr Ruslan quiñones on A/P Problem List: (1) Fall ICD Code: W19.XXXA - Unspecified fall, initial encounter (2) Hip fracture, left ICD Code: S72.002A - Fracture of unspecified part of neck of left femur, initial encounter for closed fracture (3) Dehydration ICD Code: E86.0 - Dehydration (4) HTN (hypertension) ICD Code: I10 - Essential (primary) hypertension (5) Elevated LFTs ICD Code: R79.89 - Other specified abnormal findings of blood chemistry Assessment and Plan Fall: s/p mechanical [place], no head trauma/LOC reported. Foot/Ankle/Knee/Tib-fib X-ray all negative for acute fractures, images reviewed by me. Left Hip Fx: Hip X-ray w/ minimally displaced subcapital left femoral neck fracture, images reviewed by me. Dr. Reyez consulted by ER physician IVF, analgesics/antiemetics. S/p Left Hip Hemiarthroplasty for Fracture using J&J Depuy Size 13 Corail stem and a 44 mm bipolar head - Posterior Approach by Dr Ruslan quiñones on Dehydration: GFR 85. U/a negative, IVF for hydration, repeat labs in am. HTN: BP 234/101, HR 79 on arrival, likely compounded by significant pain, s/p Morphine, repeat BP 162/73, HR 65. Will monitor. Restart home Metoprolol, Ramipril. Elevated LFTs: Mild. No previous labs for comparison. Recheck labs in am for trend. DVT Prophylaxis: Anticoagulation post op per Ortho prescription written by ortho for xarelto 10 mg daily and also Percocet for pain meds, prescriptions are in the chart. patient will go for a week or more to [facility] to live with her son before traveling back to [place]. Patient wants dome refills on meds as she might run of her meds. refills provided. Discharge home on 09/30/17. Walker at DC as well. Case management ff for dc plan as well. Case management for d/c planning as needed. Discussed with the patient, nurse. Jelly Siegel MD Sep 29, 2017 12:37
[2017-09-30 00:30] VITALS: BP 134/66; PULSE 105; RESP 17; TEMP 99.5; O2SAT 95
[2017-09-30] MEDS: LACTATED RINGER'S 1000 ML INJ 1,000 ML IV SCH (06:02)
[2017-09-30 08:00] VITALS: BP 149/78; PULSE 107; RESP 18; TEMP 98.5; O2SAT 90
[2017-09-30] MEDS: SODIUM CHLORIDE 0.9% FLUSH 10 ML FLUSH IV FLUSH SCH (09:00)
[2017-09-30] MEDS: RAMIPRIL 5 MG CAP PO SCH (09:15)
[2017-09-30] MEDS: ENOXAPARIN SODIUM 40 MG/0.4 ML SYRINGE SQ SCH (09:15)
[2017-09-30] MEDS: METOPROLOL TARTRATE 100 MG TAB PO SCH (09:15)
[2017-09-30] MEDS: DOCUSATE SODIUM 50 MG/SENNA 8.6 MG TAB PO SCH (09:15)
[2017-09-30] MEDS: PANTOPRAZOLE SOD 20 MG DELAYED RELEASE TAB PO SCH (09:15)
[2017-09-30] MEDS: LEVOTHYROXINE SODIUM 125 MCG TAB PO SCH (09:15)
[2017-09-30] MEDS: oxyCODONE/ACETAMINOPHEN 5 MG/325 MG TAB PO PRN (09:16)
[2017-09-30] MEDS ORDERED: PERC5TAB12 PO (11:32)
[2017-09-30] MEDS ORDERED: XARE10TA PO (11:34)
== END 2017-09-30 13:40 | disposition home or self-care (01) | DRG 470 ==
LOC: NEPC 17:28 → NEDA 19:25 → N06B 20:56
PROVIDERS: ADMIT Hospitalist; ATTEND Hospitalist
PROC: 0SRS0JA Replacement of Left Hip Joint, Femoral Surface with Synthetic Substitute, Uncemented, Open Approach (ICD-10-PCS; principal; 2017-09-27 07:27)
DX: S72.012A Unspecified intracapsular fracture of left femur, initial encounter for closed fracture (principal); K44.9 Diaphragmatic hernia without obstruction or gangrene; E86.0 Dehydration; R79.89 Other specified abnormal findings of blood chemistry; I10 Essential (primary) hypertension; W01.0XXA Fall on same level from slipping, tripping and stumbling without subsequent striking against object, initial encounter; Y92.832 Beach as the place of occurrence of the external cause; Z88.5 Allergy status to narcotic agent; Z88.7 Allergy status to serum and vaccine
CPT/HCPCS: 51702; 71010; 73501; 73502; 80053; 81001; 85014; 85018; 85025; 85610; 85730; 86850; 86900; 86901; 93005; 94150; 96374; 96375; C1776; C9290; J0131; J0690; J1100; J1580; J1650; J2250; J2270; J2370; J2405; J2710; J3010; J3370; J7030; J7120; L1830